=== PATIENT | male | born 1980 | race Caucasian/White ===

== ENCOUNTER 2018-08-13 08:58 | Observation (INO) | payer OTHER ==
[~2018-08-13] VITALS: Ht 165.1 cm; Wt 102.4 kg
[2018-08-13] VITALS (21 sets, daily range): BP systolic 107–148; BP diastolic 55–88; PULSE 86–104; RESP 12–31; Ht 165.1 cm; Wt 102.4 kg
[~2018-08-13 08:58] MED LIST: CEFAZOLIN 1 GM INJ ONE; CEFAZOLIN 2 GM/50 ML (PMX) 50 ML IVPB SCH; DESFLURANE 15 MIN ONE; DEXAMETHASONE 4 MG/ML 5 ML INJ ONE
[2018-08-13] MEDS ORDERED: CEFAZOLIN 2 GM/50 ML (PMX) 50 ML IVPB ONE (10:00)
[2018-08-13] MEDS ORDERED: LACTATED RINGER'S 1,000 ML (ENTER RATE) IV* ONE (10:00)
[2018-08-13] MEDS ORDERED: FENTAnyl 50 MCG/ML VIAL ONE ×2 (12:03→15:40)
[2018-08-13] MEDS ORDERED: MIDAZOLAM 1 MG/ML 2 ML INJ ONE (12:03)
[2018-08-13] MEDS ORDERED: LIDOCAINE 2% (SDV) 5 ML INJ ONE (13:40)
[2018-08-13] MEDS ORDERED: PROPOFOL 20 ML ONE (13:40)
[2018-08-13] MEDS ORDERED: ROCURONIUM 50 MG INJ ONE (13:41)
[2018-08-13] MEDS ORDERED: SUCCINYLCHOLINE CHLORIDE 100 MG/5 ML SYG IV ONE (13:41)
[2018-08-13] MEDS ORDERED: METOCLOPRAMIDE 10 MG INJ ONE (13:41)
[2018-08-13] MEDS ORDERED: GELATIN SIZE 100 SPONGE ONE (13:59)
[2018-08-13] MEDS ORDERED: BUPIVACAINE 0.5%/EPI (SDV) 30 ML INJ ONE (14:00)
[2018-08-13] MEDS ORDERED: THROMBIN 5000 UNIT VIAL ONE (14:00)
[2018-08-13] MEDS ORDERED: POLYMYXIN/BACITRACIN 1L IRRIG ONE (14:00)
--- NOTE | 2018-08-13 14:27 | HPN ---
Date/Time of Note Date/Time of Note DATE: 08/13/18 TIME: 14:27 Interval H&P Admission Note Pt. seen H&P reviewed: No system changes LIZET ENRIQUEZ MD Aug 13, 2018 14:27
--- NOTE | 2018-08-13 14:34 | PREAC ---
Date/Time of Note Date/Time of Note DATE: 08/13/18 TIME: 14:33 Anesthesia Eval and Record Evaluation Time Pre-Procedure Interview DATE: 08/13/18 TIME: 14:33 Age 37 Sex male NPO: 8 hrs Preoperative diagnosis lumbar disc herniation Planned procedure Left L4-5 microdiscectomy Past Medical History Past Medical History: Includes Pulm: Smoking Hx ('mild), Asthma, Other (resolving URI) Surgery & Anesthesia Issues Hx of difficult intubation Meds Anticoagulation: No Beta Samantha within 24 hr: No Reason Beta Samantha not given: Pt. not on B-Samantha No Active Prescriptions or Reported Meds Meds reviewed: Yes Allergies Coded Allergies: No Known Allergy (Unverified , 08/13/18) Allergies Reviewed: Yes Labs/Studies Labs Reviewed: Reviewed by anesthesiologist test: N/A Studies: ECG, CXR Pre-procedure Exam Last vitals Vital Signs Date Temp Pulse Resp B/P (MAP) Pulse Ox O2 O2 Flow FiO2 Time Delivery Rate 08/13/18 98.5 86 18 126/88 95 Room Air 09:39 (101) Airway: Adequate mouth opening, Adequate thyromental dist Mallampati: Mallampati III Teeth: Normal Lung: Normal Heart: Normal ASA Physical Status ASA physical status: 2 Emergency: None Planned Anesthetic General/MAC: ETT Planned Pain Management Parenteral pain med, Local by surgeon Pre-operative Attestations Prior to commencing anesthesia and surgery, the patient was re-evaluated, there was verification of: *The patient's identity *The results of appropriate recent lab work and preoperative vital signs *The above evaluation not changing prior to induction *Anesthetic plan, risk benefits, alternative and complications discussed with patient/family; questions answered; patient/family understands, accepts and wishes to proceed. BRIGIDA FOOTE MD Aug 13, 2018 14:34
[2018-08-13] MEDS ORDERED: FENTAnyl 50 MCG/ML VIAL IV PRN ×2 (15:00)
[2018-08-13] MEDS ORDERED: LEVALBUTEROL (NEB) 1.25 MG/0.5 ML AMP HHN PRN (15:00)
[2018-08-13] MEDS ORDERED: ONDANSETRON 4 MG INJ IV PRN (15:00)
[2018-08-13] MEDS ORDERED: HYDROmorphONE 1 MG/5 ML IV SYRINGE IV PRN ×3 (15:00)
[2018-08-13] MEDS ORDERED: DIPHENHYDRAMINE 50 MG INJ IV PRN (15:00)
[2018-08-13] MEDS ORDERED: IPRATROPIUM (NEB) 0.5 MG/2.5 ML AMP HHN PRN (15:00)
[2018-08-13] MEDS ORDERED: hydrALAzine 20 MG INJ IV PRN (15:00)
[2018-08-13] MEDS ORDERED: LABETALOL HCL 20MG INJ IV PRN (15:00)
[2018-08-13] MEDS ORDERED: MEPERIDINE 25 MG INJ IV PRN (15:00)
[2018-08-13] MEDS ORDERED: BETAMET NA PHOS/AC(6 MG/ML) 5ML INJ ONE (16:53)
--- NOTE | 2018-08-13 17:58 | PAC ---
Date/Time of Note Date/Time of Note DATE: 08/13/18 TIME: 17:56 Post-Anesthesia Notes Post-Anesthesia Note Last documented vital signs Vital Signs Date Temp Pulse Resp B/P (MAP) Pulse Ox O2 O2 Flow FiO2 Time Delivery Rate 08/13/18 98.5 86 18 126/88 95 Room Air 09:39 (101) Activity: WNL Respiratory function: WNL Cardiovascular function: WNL Mental status: Baseline Pain reasonably controlled: Yes Hydration appropriate: Yes Nausea/Vomiting absent: Yes BRIGIDA FOOTE MD Aug 13, 2018 17:58
[2018-08-13] MEDS ORDERED: HYDROCODONE/APAP (5/325) TAB PO PRN (18:30)
[2018-08-13] MEDS ORDERED: NACL 0.9% 3 ML SYG IV SCH (18:30)
[2018-08-13] MEDS ORDERED: AL HYDROX/MG HYDROX/SIMETH 30 ML CUP PO PRN (18:30)
[2018-08-13] MEDS ORDERED: PROCHLORPERAZINE 10 MG TAB PO PRN (18:30)
[2018-08-13] MEDS ORDERED: NALOXONE (0.4 MG/ML) INJ IV PRN (18:30)
[2018-08-13] MEDS ORDERED: ACETAMINOPHEN 325 MG TAB PO PRN (18:30)
--- NOTE | 2018-08-13 18:31 | OPR ---
Date/Time of Note Date/Time of Note DATE: 08/13/18 TIME: 18:29 Operative Report Free Text/Dictation DATE OF OPERATION: 08/13/2018 PREOPERATIVE DIAGNOSES: Left sided L4-L5 disk herniation with L5 radiculopathy POSTOPERATIVE DIAGNOSES: Left sided L4-L5 disk herniation with L5 radiculopathy OPERATION PERFORMED: Left L4-L5 microdiscectomy SURGEON: Lizet Enriquez MD ANESTHESIA: General endotracheal ESTIMATED BLOOD LOSS: 25 mL SURGICAL INDICATION: The patient is a 37 year-old male who presents with a history of left lower extremity pain and weakness. He was found to have a disc herniation which correlated well with his symptoms. The patient had failed conservative treatment. Risks, benefits, and alternatives to microdiscectomy were explained to the patient and they wished to proceed. Risks explained included but were not exclusive of bleeding, infection, cauda equina syndrome, nerve injury, dural tear, iatrogenic instability, recurrent disc herniation, fracture, vascular injury, bowel injury, stroke, heart attack and pulmonary embolism. DESCRIPTION OF TECHNIQUE: The patient was identified in the preoperative area and taken to the operating room. Rapid induction of general endotracheal anesthesia was performed. The patient was given 2 g of cefazolin for prophylaxis. The patient was then placed in the prone position on the Toy frame on a Bernard flat top table with all prominences well padded. The back was prepped and draped in the usual sterile manner. Using a spinal needle and intraoperative fluoroscopy, the appropriate level was clearly identified (L4- L5). The skin was injected using 0.5% Marcaine with epinephrine. Longitudinal midline incision was then created using a 10 blade. Further dissection through soft tissue was performed using electrocautery down to the spinous processes. The dissection was taken down the left side of the lamina and over the facet joint capsule. A self-retaining retractor was applied. Again, intraoperative fluoroscopy confirmed the appropriate level (L4-5). The microscope was brought into use for microdissection. A small portion of the caudal aspect of the cephalad L4 lamina was resected using a high-speed bur. A series of Kerrison rongeurs were then used to resect the ligamentum flavum. The dura and traversing nerve root were both directly visualized. These were retracted gently in a medial direction. Immediately, the extruded disc fragment was noted. The pseudo anulus was incised using an 11 blade. Several loose fragments of disk were removed. These were removed back to a stable portion of the disk. The disk space was further pressurized using a using normal saline through a syringe to ensure that no loose fragments remained behind. Palpation with a ball-tip probe did not reveal any further stenosis. The traversing L5 nerve root was noted to be significantly decompressed. Meticulous attention was paid towards hemostasis using FloSeal as well as Gelfoam and thrombin. Care was taken to remove all F loSeal and Gelfoam prior to wound closure. The fascia was then closed using 1 Vicryl in an interrupted fashion. Subcutaneous tissue was closed using 2-0 Vicryl in an interrupted fashion. The skin was closed using a running 4-0 Monocryl stitch. The wound was dressed using Dermabond and a 4x4 sterile gauze. The patient was returned to the supine position. He was extubated immediately postoperatively and taken to the recovery room in stable condition. Procedure Date: Aug 13, 2018 Preoperative Diagnosis Left sided L4-L5 disk herniation with L5 radiculopathy Postoperative Diagnosis Left sided L4-L5 disk herniation with L5 radiculopathy Operation/Procedure Performed Left L4-L5 microdiscectomy Surgeon see signature line [employer] None Anesthesia Type: general Estimated Blood Loss: 10 - 50 ml's Transfusion none Specimen L4-5 disk Grafts/Implants none Complications none Pt Condition Post Procedure: stable Procedure Description DESCRIPTION OF TECHNIQUE: The patient was identified in the preoperative area and taken to the operating room. Rapid induction of general endotracheal anesthesia was performed. The patient was given 2 g of cefazolin for prophylaxis. The patient was then placed in the prone position on the Toy frame on a Bernard flat top table with all prominences well padded. The back was prepped and draped in the usual sterile manner. Using a spinal needle and intraoperative fluoroscopy, the appropriate level was clearly identified (L4- L5). The skin was injected using 0.5% Marcaine with epinephrine. Longitudinal midline incision was then created using a 10 blade. Further dissection through soft tissue was performed using electrocautery down to the spinous processes. The dissection was taken down the left side of the lamina and over the facet joint capsule. A self-retaining retractor was applied. Again, intraoperative fluoroscopy confirmed the appropriate level (L4-5). The microscope was brought into use for microdissection. A small portion of the caudal aspect of the cephalad L4 lamina was resected using a high-speed bur. A series of Kerrison rongeurs were then used to resect the ligamentum flavum. The dura and traversing nerve root were both directly visualized. These were retracted gently in a medial direction. Immediately, the extruded disc fragment was noted. The pseudo anulus was incised using an 11 blade. Several loose fragments of disk were removed. These were removed back to a stable portion of the disk. The disk space was further pressurized using a using normal saline through a syringe to ensure that no loose fragments remained behind. Palpation with a ball-tip probe did not reveal any further stenosis. The traversing L5 nerve root was noted to be significantly decompressed. Meticulous attention was paid towards hemostasis using FloSeal as well as Gelfoam and thrombin. Care was taken to remove all FloSeal and Gelfoam prior to wound closure. The fascia was then closed using 1 Vicryl in an interrupted fashion. Subcutaneous tissue was closed using 2-0 Vicryl in an interrupted fashion. The skin was closed using a running 4-0 Monocryl stitch. The wound was dressed using Dermabond and a 4x4 sterile gauze. The patient was returned to the supine position. He was extubated immediately postoperatively and taken to the recovery room in stable condition. LIZET ENRIQUEZ MD Aug 13, 2018 18:31
[2018-08-13] MEDS ORDERED: HYDROmorphONE 0.5 MG/0.5 ML SYG IV PRN (19:00)
[2018-08-13] MEDS: ONDANSETRON 4 MG INJ IV PRN (23:17)
[2018-08-13] MEDS: HYDROCODONE/APAP (5/325) TAB PO PRN (23:18)
[2018-08-13] MEDS: CEFAZOLIN 1 GM/50 ML (PMX) 50 ML IVPB SCH (23:18)
[2018-08-14] VITALS: BP 116/68; PULSE 102; RESP 19
[2018-08-14 04:00] VITALS: BP 118/86; PULSE 91; RESP 19
[2018-08-14] MEDS: CEFAZOLIN 1 GM/50 ML (PMX) 50 ML IVPB SCH ×2 (06:32→12:13)
[2018-08-14 07:34] VITALS: BP 128/70; PULSE 89; RESP 19
[2018-08-14] MEDS: HYDROCODONE/APAP (5/325) TAB PO PRN ×2 (08:05→12:13)
[2018-08-14] MEDS ORDERED: DOCUSATE SODIUM 100 MG CAP PO SCH (09:00)
--- NOTE | 2018-08-14 12:12 | PDOCDIS ---
Discharge Instructions CONDITION [id number] Patient Condition: [id number] Good HOME CARE INSTRUCTIONS: [id number] Diet Instructions: [id number] Regular [id number] Special Diet: [id number] REGULAR DIET ACTIVITY: [id number] Activity Restrictions: [id number] Avoid heavy lifting Avoid Heavy Housework [id number] Bathing Restrictions: [id number] Shower FOLLOW UP/APPOINTMENTS Follow-up Plan Follow-up with Dr. Enriquez in 2 weeks LIZET ENRIQUEZ MD Aug 14, 2018 12:12
[2018-08-14] MEDS: ONDANSETRON 4 MG INJ IV PRN (14:03)
== END 2018-08-14 14:30 | disposition home or self-care (01) ==
LOC: SDS 08:58 → REC 18:26 → SDS 18:26 → MS1 19:56
PROVIDERS: ADMIT Orthopaedic Surgery; ATTEND Orthopaedic Surgery
DX: M51.16 Intervertebral disc disorders with radiculopathy, lumbar region (principal); J45.909 Unspecified asthma, uncomplicated; Z87.891 Personal history of nicotine dependence
CPT/HCPCS: 63030; 72100; 80048; 85014; 85018; 88304; 94664; 97110; 97116; 97161; J0690; J0702; J1100; J1170; J2175; J2250; J2405; J2765; J3010; Z7500; Z7512; Z7610; G0378